=== PATIENT | male | born 1955 | race Caucasian/White ===

== ENCOUNTER 2020-08-21 11:40 | Outpatient (CLI) | payer OTHER, SELFPAY ==
--- NOTE | ~2020-08-21 | XR_ITS ---
EXAMINATION:XR_CERV2-3V_CR DATE: 08/21/2020 11:58 INDICATION: Neck pain TECHNIQUE: AP, lateral, lateral swimmers and odontoid views of the cervical spine are provided. COMPARISON: None FINDINGS: Alignment is normal. The odontoid is intact. No fracture is identified. The vertebral body heights are maintained. There is severe loss of intervertebral disc space height at C5-6, C6-7, and C 7-T1. There is severe facet and uncovertebral joint osteoarthritis of the lower cervical spine. Small degenerative osteophytes project from the anterior endplates of multiple vertebral bodies. Preverteb ral soft tissues are normal. IMPRESSION: 1. Severe lower cervical spondylosis without acute findings. Reviewed, dictated and finalized at location B.
== END 2020-08-21 11:41 | disposition home or self-care (01) ==
PROVIDERS: PCP Family Medicine; Visit Provider Nurse Practitioner Family
DX: M47.892 Other spondylosis, cervical region (principal)
CPT/HCPCS: 72040

== ENCOUNTER 2021-02-19 11:56 | Outpatient (CLI) | payer OTHER, SELFPAY ==
[2021-02-19 12:49] LABS: Hematocrit 49.5 % (42.0-52.0); Hemoglobin 17.4 g/dL (14.0-18.0); Mean Corpuscular HGB Conc 35.2 g/dl (32-36); Mean Corpuscular Hemoglobin 30.2 pg (26-34); Mean Corpuscular Volume 85.9 fl (80-100); Mean Platelet Volume 10.6 fl (7.4-10.4); Platelet Count Result 196 k/mm3 (150-375); Red Blood Count 5.76 M/mm3 (4.6-6.20); Red Cell Distribution Width 12.1 % (11.5-14.5); White Blood Count 7.2 K/mm3 (4.5-10.0)
[2021-02-19 12:53] LABS: LDL Cholesterol Direct 122 mg/dL
[2021-02-19 12:59] LABS: Alanine Aminotransferase 45 U/L (4-50); Albumin Level 4.8 g/dL (3.5-5.1); Alkaline Phosphatase 65 U/L (38-126); Anion Gap 10 mmol/L (8-16); Aspartate Amino Transferase 41 U/L (17-59); Bilirubin,Total 0.9 mg/dL (0.2-1.3); Blood Urea Nitrogen 18 mg/dL (9-20); Calcium 9.6 mg/dL (8.4-10.2); Carbon Dioxide 31 mmol/L (22-30); Chloride 98 mmol/L (98-107); Cholesterol 185 mg/dL (0-200); Estimated Glomerular Filt Rate > 60; Glucose 95 mg/dL (65-110); HDL Direct 42 mg/dL; Potassium 3.5 mmol/L (3.4-5.0); Sodium 139 mmol/L (137-145); Triglycerides 87 mg/dL (<150)
[2021-02-19 13:19] LABS: Vitamin D 25 Hydroxy 57.3 ng/mL
[2021-02-19 13:24] LABS: Prostate Specific Antigen 1.1 ng/mL (< OR = 4.0)
[2021-02-19 13:36] LABS: Hemoglobin A1C 6.5 % (<5.7)
== END 2021-02-19 11:57 | disposition home or self-care (01) ==
PROVIDERS: PCP Family Medicine; Visit Provider Nurse Practitioner Family
DX: E78.5 Hyperlipidemia, unspecified (principal); E55.9 Vitamin D deficiency, unspecified; G62.9 Polyneuropathy, unspecified; Z12.5 Encounter for screening for malignant neoplasm of prostate; I49.1 Atrial premature depolarization
CPT/HCPCS: 36415; 80053; 80061; 82306; 83036; 84153; 84443; 85027

== ENCOUNTER → 2021-04-28 10:02 | Outpatient (CLI) | payer OTHER, SELFPAY ==
[2021-04-30 19:33] LABS: SARS-CoV-2 RNA PCR Positive
== END ==
PROVIDERS: PCP Family Medicine; Visit Provider Nurse Practitioner Family
DX: U07.1 COVID-19 (principal)
CPT/HCPCS: C9803; U0003; U0005

== ENCOUNTER 2021-10-01 11:16 | Outpatient (CLI) | payer OTHER, SELFPAY ==
--- NOTE | ~2021-10-01 | XR_ITS ---
XR lumbar spine 2-3V 10/01/2021 11:39 Indication: Low back pain Procedure: 3 views lumbar spine Comparison: 07/25/2018 Findings: Mild wedge-shaped appearance to T12 and T11 which appears chronic. There is ventral osteoph ytes at multiple levels. No acute fracture, subluxation or dislocation. There is disc narrowing at L4 -5 which has progressed since prior examination. There is grade 1 degenerative spondylolisthesis at L 4-5. Pedicles intact. Sacral foramen are symmetric. Impression: 1: Mild-moderate lumbar spondylosis. Reviewed, dictated and finalized at location A. Impression: 1: Mild-moderate lumbar spondylosis.
== END 2021-10-01 11:17 | disposition home or self-care (01) ==
PROVIDERS: PCP Family Medicine; Visit Provider Physician Assistant Medical
DX: M47.896 Other spondylosis, lumbar region (principal)
CPT/HCPCS: 72100

== ENCOUNTER 2022-05-28 08:12 | Outpatient (CLI) | payer OTHER, SELFPAY ==
--- NOTE | ~2022-05-28 | XR_ITS ---
Lumbosacral Spine: AP and lateral views Clinical History: Pain COMPARISON: 10/01/2021 Findings: The normal lordotic curve is maintained. Stable compression fracture deformity of T12. No o ther fracture or subluxation evident. The intervertebral disc spaces are preserved. Facet joint dege nerative changes are present, most prominent at L4-L5 and L5-S1. The sacroiliac joints are normally o utlined. Impression: Facet joint degenerative change, as detailed above. Stable compression fracture of T12. Reviewed, dictated and finalized at location M. SINKER APPRENTICE Impression: Facet joint degenerative change, as detailed above. Stable compression fracture of T12.
== END 2022-05-28 08:13 | disposition home or self-care (01) ==
PROVIDERS: PCP Family Medicine; Visit Provider Nurse Practitioner Family
DX: S22.080D Wedge compression fracture of T11-T12 vertebra, subsequent encounter for fracture with routine healing (principal); X58.XXXD Exposure to other specified factors, subsequent encounter; R20.0 Anesthesia of skin; R20.2 Paresthesia of skin
CPT/HCPCS: 72100

== ENCOUNTER → 2022-07-04 07:21 | Outpatient (CLI) | payer OTHER, SELFPAY ==
--- NOTE | ~2022-07-04 | MR_ITS ---
MRI of the lumbar spine Clinical History: Back pain Technique: Axial T2-weighted images, and sagittal T1-weighted, T2-weighted, and T2 fat-sat images wer e acquired. COMPARISON: 01/19/2018 Findings: There is no fracture or subluxation of the lumbar spine. Vertebral bodies maintain normal h eight and alignment. Osseous alignment is unchanged from prior exam. No abnormal/suspicious bone guero ow signal abnormality seen. At T12-L1, there is a central posterior disc protrusion, similar to prior exam, which mildly effaces the ventral thecal sac. No edith compression of the distal spinal cord. Neural foramina are preserved . At L1-L2, L2-L3, there is mild facet joint degenerative changes, without significant disc bulge or he rniation. No spinal canal stenosis or neural foraminal narrowing at these levels. At L3-L4, there is facet arthropathy. No disc bulge or herniation. No spinal canal stenosis or neural foraminal narrowing. At L4-L5, there is minimal disc bulge with advanced facet arthropathy. No spinal canal stenosis. Ther e is mild to moderate left neural foraminal narrowing. Right neural foramen preserved. At L5-S1, there is no significant disc bulge or herniation. There is mild facet arthropathy. No spina l canal stenosis or neural foraminal narrowing. Paravertebral soft tissues are unremarkable. Impression: Mild degenerative spondylosis, as detailed above. Probable mild to moderate left neural foraminal nick rowing at L4-L5. Reviewed, dictated and finalized at [facility]. ICE ASSOCIATE Impression: Mild degenerative spondylosis, as detailed above. Probable mild to moderate lef t neural foraminal narrowing at L4-L5.
== END ==
PROVIDERS: PCP Family Medicine; Visit Provider Nurse Practitioner Family
DX: R20.0 Anesthesia of skin (principal); R20.2 Paresthesia of skin; M47.896 Other spondylosis, lumbar region
CPT/HCPCS: 72148

== ENCOUNTER 2023-04-16 09:56 | Outpatient (CLI) | payer MEDICARE, SELFPAY ==
--- NOTE | ~2023-04-16 | XR_ITS ---
XR_CERV2-3V_CR 04/16/2023 10:16 Indication: Cervicalgia Procedure: 4 view cervical spine Comparison: 08/21/2020 Findings: There is moderate lower cervical spondylosis with disc narrowing and endplate hypertrophy a t C5-6 through C7-T1. No prevertebral soft tissue swelling. Moderate multilevel uncinate and facet hy pertrophy. Odontoid process is normal. Lung apices are normal. Impression: 1: Moderate cervical spondylosis. Reviewed, dictated and finalized at location B. RCHARGER MECHANIC Impression: 1: Moderate cervical spondylosis.
== END 2023-04-16 09:57 | disposition home or self-care (01) ==
PROVIDERS: PCP Family Medicine; Visit Provider Nurse Practitioner Family
DX: M54.2 Cervicalgia (principal); M47.892 Other spondylosis, cervical region
CPT/HCPCS: 72040

== ENCOUNTER 2023-04-19 09:31 | Outpatient (CLI) | payer MEDICARE, SELFPAY ==
--- NOTE | ~2023-04-19 | XR_ITS ---
Thoracic spine: Clinical Indication: Pain AP and lateral views were performed. No fracture is seen. There is normal alignment of the vertebrae. The intervertebral disc spaces appe ar normal. Paravertebral soft tissues appear normal. Impression: No significant abnormalities noted. Reviewed, dictated and finalized at [facility]. F PORT DIRECTOR Impression: No significant abnormalities noted.
== END 2023-04-19 09:32 | disposition home or self-care (01) ==
PROVIDERS: PCP Family Medicine; Visit Provider Physician Assistant Medical
DX: M54.6 Pain in thoracic spine (principal)
CPT/HCPCS: 72072

== ENCOUNTER → 2023-04-29 07:28 | Outpatient (CLI) | payer MEDICARE, SELFPAY ==
--- NOTE | ~2023-04-29 | MR_ITS ---
MRI of the lumbar spine Clinical History: Radiculopathy Technique: Axial T2-weighted images, and sagittal T1-weighted, T2-weighted, and T2 fat-sat images wer e acquired. COMPARISON: 07/04/2022 Findings: No acute fracture or sublocation seen. There are mild chronic wedging deformities of T11 an d T12. No suspicious bone marrow signal abnormality seen. At L1-L2, there is no disc bulge or herniation. There is mild facet arthropathy. No central canal david nosis or neural foraminal narrowing. At L2-L3, there is no disc bulge or herniation. There is mild facet arthropathy. No central canal david nosis or neural foraminal narrowing. At L3-L4, there is no disc bulge or herniation. There is advanced facet arthropathy. No central canal stenosis or neural foraminal narrowing. At L4-L5, there is mild disc bulge with advanced facet arthropathy. No central canal stenosis. There is moderate left neural foraminal narrowing, and minimal right neural foraminal narrowing. At L5-S1, there is minimal disc bulge with moderate facet arthropathy. No central canal stenosis or n eural foraminal narrowing. Paravertebral soft tissues are unremarkable. Impression: Overall mild degenerative spondylosis, as above. Reviewed, dictated and finalized at location . KKEEPER Impression: Overall mild degenerative spondylosis, as above.
== END ==
PROVIDERS: PCP Nurse Practitioner Family; Visit Provider Nurse Practitioner Family
DX: M47.26 Other spondylosis with radiculopathy, lumbar region (principal)
CPT/HCPCS: 72148

== ENCOUNTER 2023-07-04 10:03 | Emergency (ER) | payer MEDICARE, SELFPAY ==
--- NOTE | 2023-07-04 10:08 | ED.URI ---
HPI - URI/Sore Throat General Chief Complaint: Upper Respiratory Infection Stated Complaint: Head Congestion, Nose Bleed,Cough Time Seen by Provider: 07/04/23 10:27 Source: patient, RN notes reviewed and old records reviewed Mode of arrival: ambulatory Limitations: no limitations History of Present Illness HPI Narrative: 67-year-old male presents to the [facility] with concerns for cough, head congestion. Patient reports that he did a home test on June 08, tested positive for COVID-19. Reports that he did [id number] products, got better. Approximately 10 days ago he started with severe sinus pain and pressure as well as postnasal drainage. Has taken multiple COVID test which he reports were negative. Has been taking Mucinex MD which some congestion but states he is just feeling better. Reports sinus pain both frontal and maxillary Treatments prior to arrival: cold medicine Related Data Home Medications Medication Instructions Recorded Confirmed hydroxychloroquine 100 mg tablet 200 mg PO BID 04/13/22 07/04/23 folic acid 1 mg tablet 1 mg PO DAILY 07/31/22 07/04/23 Allergies Allergy/AdvReac Type Severity Reaction Status Date / Time lisinopril AdvReac Mild Cough Verified 07/04/23 10:07 sulfasalazine AdvReac Mild Rash Verified 07/04/23 10:07 Review of Systems Review of Systems: All systems reviewed & are unremarkable except as noted in HPI and below Constitutional: Constitutional: Reports no additional constitutional complaints Eyes: Eyes: Reports no additional eye complaints ENT: Reports as per HPI Cardiovascular: Cardiovascular: Reports no additional cardiovascular complaints, Denies chest pain and Denies dyspnea Respiratory: Respiratory: Reports no additional respiratory complaints, Denies chest congestion, Denies cough and Denies dyspnea Gastrointestinal: Gastrointestinal: Reports no additional gastrointestinal complaints, Denies abdominal pain, Denies nausea and Denies vomiting Musculoskeletal: Musculoskeletal: Reports no additional musculoskeletal complaints Integumentary/Breasts: Skin/Breast: Reports system reviewed and no additional complaints, except as docu Neurologic: Reports system reviewed and no additional complaints, except as documented Psychiatric: Psychiatric: Reports no additional psychiatric complaints Allergic/Immunologic: Allergic/Immunologic: Reports no additional allergic/immunologic complaints PMFSH Past Medical History Medical History Anxiety BMI 25.0-25.9,adult BMI 27.0-27.9,adult BMI 28.0-28.9,adult BMI 29.0-29.9,adult COVID 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 There is no relevant family history pertinent to the patient complaint. Exam Const: General: cooperative, healthy appearing, comfortable, no acute distress, wel
[2023-07-04 10:15] VITALS: BP 138/73; PULSE 60; RESP 18; TEMP 35.7; O2SAT 99
== END 2023-07-04 10:50 | disposition home or self-care (01) ==
PROVIDERS: Emergency Provider Nurse Practitioner; PCP Family Medicine
DX: J01.90 Acute sinusitis, unspecified (principal); E78.2 Mixed hyperlipidemia; I10 Essential (primary) hypertension; M51.37 Other intervertebral disc degeneration, lumbosacral region; M51.36 Other intervertebral disc degeneration, lumbar region; Z86.16 Personal history of COVID-19
CPT/HCPCS: 99213; G0463

== ENCOUNTER 2023-07-20 10:47 | Outpatient (CLI) | payer MEDICARE, SELFPAY ==
--- NOTE | ~2023-07-20 | XR_ITS ---
Right Shoulder Technique: AP and scapular Y views were obtained. Clinical History: Pain Findings: No fracture or dislocation is seen. Osseous alignment is anatomic. The glenohumeral and acr omioclavicular joint spaces are preserved. Soft tissues are unremarkable. Impression: Unremarkable right shoulder radiographs. Reviewed, dictated and finalized at [facility]. Impression: Unremarkable right shoulder radiographs.
== END 2023-07-20 10:48 ==
LOC: MICIMG 10:48
PROVIDERS: PCP Family Medicine; Visit Provider Physician Assistant
DX: M25.511 Pain in right shoulder (principal)
CPT/HCPCS: 73030

== ENCOUNTER 2025-05-09 08:56 | Outpatient (CLI) | payer MEDICARE, SELFPAY ==
--- NOTE | 2025-05-09 09:07 | ECG_ITS ---
Test Date: 2025-05-09 09:17:41 Measurements Intervals [place] Rate: 55 P: 56 MA: 156 QRS: 70 QRSD: 99 T: 9 QT: 431 QTc: 415 Interpretive Statements SINUS BRADYCARDIA INCOMPLETE RIGHT BUNDLE BRANCH BLOCK MINIMAL Q WAVES- INFERIOR LEADS BASELINE ARTIFACT- V4 BORDERLINE ECG No previous ECG available for comparison Electronically Signed On 05-09-2025 09:26:24 SERVICE ASSOCIATE by Jimmy Mccabe D.O.
--- OUTSIDE RECORDS SUMMARY | 2025-05-09 09:07 | XMS_ITS | Clinical Summary ---
Author Organization [facility] [address] [facility] Address [address] [place] [address] Care Team Providers Care Water Fabricator Operator Name Role Phone Alan Sorensen MD Primary Care Provider [phone] Social History Tobacco Use Types Packs/Day Years Used Date Smoking Tobacco: Never Assessed Sex and Gender Information Value Date Recorded Sex Assigned at Not on file Legal Sex Male 9:05 AM CDT Gender Identity Not on file Sexual Orientation Not on file Plan of Treatment Health Maintenance Due Date Last Done Comments DTAP/TDAP/TD VACCINES (1 - Tdap) 07/16/1975 COLORECTAL SCREENING 2001 Colorectal Cancer Screening 2001 FIT-DNA Q 3 years 2001 FIT/FOBT Q 1 year 2001 Flex Sig/CT Colonography Q 5 years 2001 PNEUMOCOCCAL VACCINE 50+ YEARS (1 of 1 - PCV) 07/16/19 07 ZOSTER VACCINE (1 of 2) 2006 INFLUENZA VACCINE (#1) 2024 RSV VACCINE (60+ or ) (1 - 1-dose 75+ series) 07/16/2031 Care Teams Water Fabricator Operator Relationship Specialty Start Date End Date Alan Sorensen MD [address] [place] [address] PCP - General Family Practice 01/02/20
--- OUTSIDE RECORDS SUMMARY | 2025-05-09 09:07 | XMS_ITS | Clinical Summary ---
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 Gender Identity Not on file Sexual Orientation Not on file Plan of Treatment Health Maintenance Due Date Last Done Comments Hepatitis C Virus (HCV) Screening 1955 TdaP Immunization 1955 Cologuard 2001 Colonoscopy 2001 Colorectal Cancer Screening 2001 Immunochemical Fecal Occult Blood 2001 Pneumococcal Immunization (5 0+ years) (1 of 1 - PCV) 2006 Zoster Immunization (1 of 2) 2006 Influenza Immunization (#1) 2025 SARS-COV-2 Immunization ( - season) 2025 Respiratory Syncytial Virus (RSV) Immunization (Adult) (1 - 1-dose 75+ series) 07/16/2031 Hepatitis B Immunization Aged Out No longer eligible based on patient's age to complete this topic Human Papillomavirus (HPV) Immunization Aged Out No longer eligible b ased on patient's age to complete this topic Meningococcal Immunization (ACWY) Aged Out No longer eligible based on patient's age to complete this topic Rotavirus Immunization Aged Out No lo nger eligible based on patient's age to complete this topic
--- OUTSIDE RECORDS SUMMARY | 2025-05-09 09:07 | XMS_ITS | Clinical Summary ---
Author Organization [facility] Address [address] [place] [address] Care Team Providers Care Bond Trader Name Role Phone Alan Dunbar MD Primary Care Provider [phone] Allergies Active Allergy Reactions Criticality Noted Date Comments Lisinopril Swelling Low 08/20/2014 Throat. Medications NUTRITIONAL SUPPLEMENTS OR Take 2 tablets by mouth daily. Active chlorthalidone 25 MG tablet Take 25 mg by mouth daily. 1 Active cyclobenzaprine 10 MG tablet Take 10 mg by mouth 2 (two) times daily as needed. 1 Active Eszopiclone 3 MG Tab Take 3 mg by mouth nightly at bedtime. 1 Active meloxicam 7.5 MG tablet Take 7.5 mg by mouth daily. 1 Active hydroCHLOROthiaz claire 12.5 MG tablet daily. TAKE 1 TABLET DAILY. Active ciclopirox 8 % solution 1 Active Pediatric Multivitamins-Ir on (MULTIPLE VITAMINS-IRON OR) Active capsaicin 0.025 % creamIndications :Small fiber neuropathy Apply topically 3 (three) times daily. To feet 60 g 11 2 Active DULoxetine (CYMBALTA) 20 MG capsuleIndicatio ns:Idiopathic small fiber peripheral neuropathy TAKE 1 CAPSULE BY MOUTH EVERY DAY 90 capsule 3 2 Active Active Problems No known active problems Family History Medical History Relation Comments Diabetes Daughter Autoimmune Disease Father Relation Status Comments Daughter Father Social History Tobacco Use Types Packs/Day Years Used Date Smoking Tobacco: Never Smokeless Tobacco: Never Tobacco Cessation:Counseling Given: No Alcohol Use Standard Drinks/Week Comments Yes 3.3 (1 standard drink = 0.6 oz p ure alcohol) 2 beer or whiskey daily Sex and Gender Information Value Date Recorded Sex Assigned at Not on file Legal Sex Male 9:58 AM CDT Gender Identity Not on file Sexual Orientation Not on file Last Filed Vital Signs Vital Sign Reading Time Taken Comments Blood Pressure 146/98 05/27/2021 8:47 AM PIPE AND TEST SUPERVISOR Pulse 65 05/27/2021 8:47 AM PIPE AND TEST SUPERVISOR Temperature 36.8 C (98.3 F) 05/27/2021 8:47 AM PIPE AND TEST SUPERVISOR Respiratory Rate 16 05/27/2021 8:47 AM PIPE AND TEST SUPERVISOR Oxygen Saturation 97% 05/27/2021 8:47 AM PIPE AND TEST SUPERVISOR Inhaled Oxygen Concentration - - Weight 99.3 kg (219 lb) 05/27/2021 8:47 AM PIPE AND TEST SUPERVISOR Height 188 cm (6' 2) 05/27/2021 8:47 AM PIPE AND TEST SUPERVISOR Body Mass Index 28.12 05/27/2021 8:47 AM PIPE AND TEST SUPERVISOR Plan of Treatment Health Maintenance Due Date Last Done Comments Colorectal Cancer Screening Colonoscopy (10 Years) 1956 Hepatitis C 1974 DTaP, Tdap and Td Vaccines ( 1 - Tdap) 07/16/1975 Pneumococcal Vaccine: 50+ Ye ars (1 of 1 - PCV) 2006 Zoster Vaccines (1 of 2) 2006 COVID-19 Vaccine (1 - 2024-2 6 season) 2025 Influenza Adult (#1) 2025 03/16/2018 RSV Immunization or 60+ Years (1 - 1-dose 75+ series) 07/16/2031 Hepatitis A Vaccines Aged Out No long er eligible based on patient's age to complete this topic Meningococcal B Vaccine Aged Out No l onger eligible based on patient's age to complete this topic Meningococcal Vaccine Aged Out No toro lesia eligible based on patient's age to complete this topic RSV Immunizations Under 20 Months Aged Out No longer eligible based on patient's age to complete this topic [facility] Care Teams Bond Trader Relationship Specialty Start Date End Date Alan Dunbar MD [address] [place] [address] PCP - General ORTHOPAEDICS 02/24/21
== END 2025-05-09 08:57 | disposition home or self-care (01) ==
PROVIDERS: PCP Nurse Practitioner Family; Visit Provider Podiatrist Foot & Ankle Surgery
DX: Z01.818 Encounter for other preprocedural examination (principal)
CPT/HCPCS: 93005